=== PATIENT | female | born 1950 | race Caucasian/White ===

== ENCOUNTER 2017-08-04 22:52 | Emergency (ER) | payer MEDICARE, SELFPAY ==
[2017-08-04 22:53] VITALS: BP 201/101; PULSE 93; RESP 16; TEMP 36.9; O2SAT 98; BMI 43.4
--- NOTE | 2017-08-04 23:44 | RAD_ITS ---
STUDY: X-RAY - RIGHT KNEE REASON FOR EXAM: Female, 67 years old. Chronic knee pain. TECHNIQUE: 4 view(s) of the knee. COMPARISON: None. FINDINGS: Normal visualized distal femur. Normal visualized proximal tibia and fibula. Normal proximal tibiofibular articulation. There is no demonstrated fracture. There is mild degenerative arthrosis of the medial femorotibial compartment. There is severe degenerative arthrosis of the lateral femorotibial compartment with severe joint space narrowing. There is mild degenerative arthrosis of the patellofemoral articulation. There is no demonstrated joint effusion. The soft tissue structures are unremarkable. RAD/Knee 4 or More Views IMPRESSION: Degenerative arthrosis as described above. Electronically Signed: Juanjo Hardin MD at 0:13 EDT Tel , Service support ,
--- NOTE | 2017-08-04 23:44 | ED.VISSUMM ---
- ER Visit Summary Date of Service: 08/04/17 Chief Complaint: Bilateral knee pain History of Present Illness: The patient is a 67 F with history of osteoarthritis awaiting total knee replacement surgery presents with bilateral knee pain after a fall today. Patient has been having worsening pain in her knees at baseline, with poorly controlled pain after cortisone injections and tramadol prescription. She is currently being worked up for total knee replacement surgery. Today she tripped and fell, landing on her knees. She has increased pain since then. Pain is worse with movement and weightbearing, also worse with laying on her side in bed. Patient also fell 1 week ago causing exacerbation of her knee pain and was evaluated by her family doctor 2 days ago for this complaint. Physical Examination: Nourished and well-developed laying in bed in no distress. Lower extremities show large area of abrasion on the left anterior knee, no abrasion or contusion noted to the right knee. Bilateral patellas mobile without deformity. Patient has full active extension and flexion of the knees. No pain with varus and valgus stress. No calf tenderness or swelling. DP pulses are 2+ and symmetric. Distal strength and sensation are intact. Test Results: Clinical Impression(s) from Imaging Studies Knee X-Ray 08/04/17 23:44 IMPRESSION: Degenerative arthrosis as described above. Electronically Signed: Juanjo Hardin MD at 0:13 EDT Tel , Service support , Knee X-Ray 08/04/17 23:45 IMPRESSION: Mild degenerative arthrosis. Ossifications anterior to the distal femur as described above. No demonstrated acute osseous changes. Electronically Signed: Juanjo Hardin MD at 0:11 EDT Tel , Service support , Emergency Department Course and Treatment: XRs performed of both knees. Pt given norco for pain. X-ray showed no fractures or dislocations but showed degenerative changes as expected. Patient was given a small home pack of [place] to help with her acute exacerbation of her knee pain from her fall. She already receives regular prescriptions from her doctor of tramadol, thus we discussed that she could not be prescribed any further opiates at this time. She understood and stated she would call her doctor tomorrow to discuss needed changes in her pain regimen. Patient's abrasions to the left knee were covered with clean dressing. Patient discharged home. Treatment Plan: [] Disposition: [] Impression: Bilateral knee contusions, left knee abrasions This note was generated with Boond dictation software. It may contain incorrect words, spelling, and punctuation that were not noted in review of the chart prior to signing ED Disposition - Plan for ED Patient: Disposition: Home or Assisted Living Chief Complaint: Lower Extremity Injury Instructions: ED Contusion Lower Ext Referrals: Town Doctor,Out of [NON-STAFF] - 1-2 Days if not improving Additional Instructions: Apply ice to your knees as needed for pain and swelling. You may use antibacterial ointment and bandages on the abrasions to help prevent infection and to encourage healing. Please call your doctor tomorrow to discuss further pain management needs, as your current regimen is not controlling the pain related to your fall today. You may use the [place] as directed from the home pack. If you have any worsening of your condition or any new concerning symptoms, please return immediately to the emergency department for another evaluation.
--- NOTE | 2017-08-04 23:45 | RAD_ITS ---
STUDY: X-RAY - LEFT KNEE REASON FOR EXAM: Female, 67 years old. Chronic bilateral knee pain. TECHNIQUE: 4 view(s) of the knee. COMPARISON: None. FINDINGS: Normal visualized distal femur. Normal visualized proximal tibia and fibula. Normal proximal tibiofibular articulation. There is no demonstrated fracture. There are ossifications anterior to the distal femur likely which could be due to ossification of the quadriceps tendon. There is also small calcific density anterior to the patella. There is mild degenerative arthrosis of the medial femorotibial compartment. Normal lateral femorotibial compartment. Normal patellofemoral articulation. There is no demonstrated joint effusion. The soft tissue structures are otherwise unremarkable. RAD/Knee 4 or More Views IMPRESSION: Mild degenerative arthrosis. Ossifications anterior to the distal femur as described above. No demonstrated acute osseous changes. Electronically Signed: Juanjo Hardin MD at 0:11 EDT Tel , Service support ,
[2017-08-04] MEDS: HYDROcodone Bitartrate/Apap 5/325 Tablet PO (23:49)
[2017-08-05 00:50] VITALS: BP 151/95
--- NOTE | 2017-08-05 00:58 | ED.DEP ---
ED Disposition - Plan for ED Patient: Disposition: Home or Assisted Living Chief Complaint: Lower Extremity Injury Instructions: ED Contusion Lower Ext Referrals: [facility] Doctor,Out of [Primary Care Provider] - 1-2 Days if not improving Additional Instructions: Apply ice to your knees as needed for pain and swelling. You may use antibacterial ointment and bandages on the abrasions to help prevent infection and to encourage healing. Please call your doctor tomorrow to discuss further pain management needs, as your current regimen is not controlling the pain related to your fall today. You may use the [place] as directed from the home pack. If you have any worsening of your condition or any new concerning symptoms, please return immediately to the emergency department for another evaluation.
[2017-08-05] MEDS: HYDROcodone Bitartrate/Apap 5/325 Tablet PO (01:09)
[2017-08-05 01:12] VITALS: BP 151/95; PULSE 78; RESP 18; O2SAT 98
== END 2017-08-05 01:13 | disposition home or self-care (01) ==
PROVIDERS: Emergency Provider Emergency Medicine
DX: S80.01XA Contusion of right knee, initial encounter (principal); S80.212A Abrasion, left knee, initial encounter; M17.0 Bilateral primary osteoarthritis of knee; Z79.51 Long term (current) use of inhaled steroids; Z79.891 Long term (current) use of opiate analgesic; Z79.899 Other long term (current) drug therapy; W01.0XXA Fall on same level from slipping, tripping and stumbling without subsequent striking against object, initial encounter; Y93.01 Activity, walking, marching and hiking; Y92.89 Other specified places as the place of occurrence of the external cause; Y99.8 Other external cause status
CPT/HCPCS: 73564; 99283